=== PATIENT | female | born 2005 | race Caucasian/White ===

== ENCOUNTER 2025-01-08 13:11 | Emergency (ER) | payer OTHER, SELFPAY ==
[2025-01-08 13:14] VITALS: BP 110/76
[2025-01-08 14:20] VITALS: BMI 25.8
[2025-01-08] MEDS: NSS 1000 IV (14:43)
[2025-01-08 14:51] LABS: Urine Character Clear (Clear)
[2025-01-08 14:52] LABS: Hematocrit 36.9 % (37.0-47.0); Hemoglobin 12.5 g/dL (12.0-16.0); Mean Corp Hgb Conc. 33.9 g/dL (33.0-37.0); Mean Corpuscular Volume 81.6 fL (81.0-99.0); Nucleated Red Blood Cells % 0 %; Platelet Count 274 10^3/uL (130-400); Red Cell Dist. Width 12.1 % (11.5-14.5)
[2025-01-08 14:59] LABS: ALT (SGPT) 16 U/L (0-35); AST (SGOT) 21 U/L (14-36); Albumin 5.0 g/dl (3.5-5.0); Alkaline Phosphatase 49 U/L (38-126); Blood Urea Nitrogen 9 mg/dl (7-17); Calcium 9.5 mg/dl (8.4-10.2); Carbon Dioxide 29 mmol/L (22-30); Chloride 103 mmol/L (98-107); Estimated Creatinine Clearance 98 ml/min; Glucose 126 mg/dl (70-99); Potassium 3.7 mmol/L (3.5-5.1); Sodium 140 mmol/L (135-145); Total Protein 7.9 g/dl (6.3-8.2); Urine Squamous Cell >30 /LPF (Few); eGFR > 60.00
[2025-01-08 15:01] LABS: Urine Red Blood Cell 0-2 /HPF (0-2)
--- NOTE | 2025-01-08 15:14 | ED.GENMED ---
History of Present Illness
General
Chief Complaint: Abdominal Symptoms
Source: patient and family
Exam Limitations: none
Time Seen by Provider: 01/08/25 14:25
Nursing documentation reviewed up to this point in time: agreed with
History of Present Illness
History of Present Illness:
Patient is a 19-year female who presents for nausea vomiting for the past 4 days. She was able to tolerate a little bit of liquids yesterday but has had multiple episodes of vomiting today. She denies any diarrhea. Denies any abdominal pain,
fever or chills. She has had this several times in the past in fact saw GI here at [facility] and had a normal endoscopy.
Phy Exam
General Physical Exam
General Presentation: no apparent distress
General age: appears stated age
General Skin: warm and dry
General Habitus: normal
General Mental: alert
General Hydration: appears well hydrated
ENT Exam
ENT Exam: EOMI
Cardiovascular Exam
Cardiovascular Exam: regular rate/rhythm, no murmur and normal peripheral pulses
Pulmonary Exam
Pulmonary Exam: lungs clear and no respiratory distress
Neurological Exam
Neurological Exam: alert and oriented x3
Musculoskeletal Exam
Musculoskeletal Exam: full ROM
Skin Exam
Skin Exam: normal color and warm/dry
Psychiatric Exam
Psychiatric Exam: normal mood/affect
Course
Orders/Labs/Results
Orders:
Orders
01/08/25 14:29
Complete Blood Count/With Diff Urgent
Comprehensive Metabolic Panel Urgent
HCG, Serum Qualitative Screen Urgent
Comment: ADD ON
Urinalysis Reflex To Culture Urgent
Date Specimen was Collected: 01/08/25
Time Specimen was Collected: 14:23
Comment: Clean catch
Urine Microscopic Reflex Cult Urgent
Urine Culture Urgent
KELLY Source: U
Specimen Description:
Date Specimen was Collected: 01/08/25
Time Specimen was Collected: 14:23
01/08/25 14:43
0.9% Sodium Chloride 1000 ml [Nss] 1,000 ml IV BOLUS
01/08/25 15:43
Ondansetron Injectable [Zofran] 4 mg IV NOW STA
01/08/25 16:19
Add On- LAB Urgent
Tests Added?: hcg qualitative
Abnormal Lab Results
01/08/25
14:29
Hct 36.9 L %
(37.0-47.0)
Glucose 126 H mg/dl
(70-99)
Urine Ketones 1+ A
(Negative)
Leukocyte Esterase Rfl 1+ A
(Negative)
01/08/25 14:29
01/08/25 14:29
Vital Signs
Initial and Last Documented VS:
Initial Vital Signs
Temp Pulse Resp BP Pulse Ox
98.5 F 89 18 110/76 99
01/08/25 13:14 01/08/25 13:14 01/08/25 13:14 01/08/25 13:14 01/08/25 13:14
Last Documented Vital Signs
Temp Pulse Resp BP Pulse Ox
98.5 F 89 18 110/76 99
01/08/25 13:14 01/08/25 13:14 01/08/25 13:14 01/08/25 13:14 01/08/25 16:18
MDM/Problems Addressed
Differential Diagnosis Includes:
Not limited to gastroenteritis, dehydration
MDM/Problems Addressed:
Patient is a 19-year-old female presents with nausea and vomiting. She reports she has had this several times in the past in fact has seen GI and had an unremarkable workup. Patient confided in nurse and reported although her sister does not know
she recently broke up with her boyfriend and feels this is attributed to anxiety. She is in no acute distress and has no abdominal pain she has had a full GI workup in the past her labs are unremarkable. Will hydrate and give Zofran DC with Zofran
if patient tolerates fluids and is feeling better
*Radiology
Radiology exam reviewed: radiology read reviewed
*Pulse Oximetry
SaO2: 99
Oxygen Mode of Delivery: Room air
Patient hypoxic: no
*Critical Care Note
Total Time (30-74mins, 75-104mins- exclusive of procedures): Not Applicable
ED Attending Note
-
Portions of this chart may have been created with voice recognition software.� Occasional wrong word or��sound alike� substitutions may have occurred due to the inherent limitations of voice recognition software.
Discharge Plan
Departure
Patient Disposition: Home (Routine Discharge)
Date of Disposition: 01/08/25
Time of Disposition: 17:24
Patient with high blood pressure during this ER visit?: No
Condition: Fair
Covid-19: Not Applicable
Discharge Problem:
Nausea & vomiting
Instructions: Clear Liquid Diet, Nausea and Vomiting, Adult (DC)
Prescriptions:
New
ondansetron 4 mg tablet,disintegrating
4 mg PO Q8H PRN (Reason: nausea and vomiting) Qty: 10 0RF
Referrals:
[facility] [Provider Group]
NONE,* [Family Provider, Internal Medicine]
Activity Restrictions/Additional Instructions:
As discussed a prescription for Zofran, nausea medicine was sent to your pharmacy take as directed. Clear liquids for the next 24 hours followed by bland solid foods. Please closely follow-up with your family doctor in the next 2 to 3 days.
Return if any worsening of symptoms
Interventions
Interventions:
*Risk Screen - Suicide Last Done: 01/08/25 13:14
*General Assessment Last Done: 01/08/25 13:14
*Neglect/Abuse Screening Last Done: 01/08/25 14:23
*ED- Fall Risk Assessment Last Done: 01/08/25 14:23
*ED COVID-19 Vaccine History Last Done: 01/08/25 13:14
VI-Xhfaah-Qmahnzlwyv Assessment Last Done: 01/08/25 14:31
Discharge Date and Time
Print Language: [id number]
[2025-01-08] MEDS: ZOFRAN 4 MG IV (15:56)
[2025-01-08 17:08] LABS: HCG, Serum Qualitative Screen Negative
[2025-01-08 17:48] VITALS: BP 97/63
== END 2025-01-08 17:53 | disposition home or self-care (01) ==
LOC: EMR 13:11
PROVIDERS: Emergency Medicine; EMERGENCY PHYSICIAN Student in an Organized Health Care Education/Training Program
DX: R11.2 Nausea with vomiting, unspecified (principal)
CPT/HCPCS: 99284; 96374; 96361; 80053; 81003; 81015; 84703; 85025; 87086